=== PATIENT | female | born 1975 | race Caucasian/White ===

== ENCOUNTER → 2024-09-28 | Outpatient (CLI) | payer BC ==
--- NOTE | 2024-09-29 12:31 | US ---
EXAMINATION TYPE: US pelvic complete DATE OF EXAM: 09/28/2024 COMPARISON: NONE CLINICAL INDICATION: Female, 49 years old with history of R10.2 PELVIC AND PERINEAL PAIN; Left pelvic pain. . Pt states had her left ovary removed over 10 years ago due to large cyst TECHNIQUE: Transabdominal (TA). FINDINGS: Date of LMP: unknown, a couple years ago EXAM MEASUREMENTS: Uterus: 8.9 x 4.9 x 3.9 cm Endometrial Stripe: 0.83 cm Right Ovary: 2.5 x 2.0 x 1.3 Left Ovary: Surgically absent cm Urinary bladder as visualized appears normal 1. Uterus: Anteverted wnl 2. Endometrium: wnl 3. Right Ovary: wnl 4. Left Ovary: Surgically absent 5. Bilateral Adnexa: wnl 6. Posterior cul-de-sac: wnl IMPRESSION: 1. No suspicious acute changes pelvic ultrasound [facility], , 09/29/2024 12:29 PM
== END | disposition home or self-care (01) ==
LOC: RADUSWWP 15:49
PROVIDERS: ATTEND Family Medicine
DX: R10.2 Pelvic and perineal pain (principal); Z90.721 Acquired absence of ovaries, unilateral
CPT/HCPCS: 76856

== ENCOUNTER 2024-12-05 10:41 | Day surgery (SDC) | payer BC ==
[2024-12-03 16:00] VITALS: BMI 25.9
[~2024-12-05 10:41] MED LIST: LACTATED RINGERS 1,000 ML IV SCH
[2024-12-05 11:28] VITALS: TEMP 98.2
[2024-12-05] MEDS: IV FLUID CONTINUATION 1,000 ML IV ONE (11:35)
[2024-12-05] MEDS ORDERED: PROPOFOL 10 MG/ML 20 ML VIAL IV ONE (11:54)
--- NOTE | 2024-12-05 12:12 | P.PCN ---
Date of Procedure: 12/05/24 Procedure(s) Performed: BRIEF HISTORY: Patient is a 49-year-old pleasant white female scheduled for an elective colonoscopy as a part of screening for colon cancer. PROCEDURE PERFORMED: Colonoscopy. PREOPERATIVE DIAGNOSIS: Screening for colon cancer. IV sedation per Anesthesia. PROCEDURE: After informed consent was obtained, the patient, was brought into the endoscopy unit. IV sedation was administered by Anesthesia under continuous monitoring. Digital rectal examination was normal. Initially the Olympus CF-160 flexible video colonoscope was then inserted in the rectum, gradually advanced into the cecum without any difficulty. Careful examination was performed as the scope was gradually being withdrawn. Ileocecal valve and the appendiceal orifice were visualized and appeared normal. Prep was excellent. Mucosa of the cecum, ascending colon, transverse colon, descending colon, sigmoid colon, and rectum appeared normal. Retroflexion was performed in the rectum and no lesions were seen. The patient tolerated the procedure well. IMPRESSION: Normal-appearing colon from rectum to cecum with no evidence of colorectal neoplasia. RECOMMENDATIONS: Findings of this examination were discussed with the patient as well as her family.. She was advised to have repeat screening colonoscopy in 10 years
[2024-12-05 12:37] VITALS: BP 117/83; PULSE 75; RESP 16
== END 2024-12-05 13:00 | disposition home or self-care (01) ==
LOC: ORWHC2ENDO 10:41
PROVIDERS: ATTEND Internal Medicine Gastroenterology
DX: Z12.11 Encounter for screening for malignant neoplasm of colon (principal); E07.9 Disorder of thyroid, unspecified; F41.9 Anxiety disorder, unspecified; Z79.890 Hormone replacement therapy; Z79.899 Other long term (current) drug therapy
CPT/HCPCS: 45378; J2704